=== PATIENT | male | born 1950 | race Caucasian/White ===

== ENCOUNTER 2019-06-30 07:10 | Inpatient (IN) ==
--- NOTE | 2019-06-30 08:16 | Diag Imaging Result Doc PS360 ---
EXAM: FLAT/UPRIGHT ABD/1 VIEW CHEST HISTORY: diarrhea pain TECHNIQUE: Flat and upright with chest, four views COMPARISON: 08/17/2017 FINDINGS: The lungs are well expanded. No cardiomegaly. No pneumonia. No free air beneath the diaphragm. No organomegaly. There is stool in the colon. No bowel obstruction. There are surgical clips and sutures in the right lower quadrant. No abnormal abdominal calcifications. IMPRESSION: No acute abnormality. Electronically signed by Lucas Silva 06/30/2019 8:14 AM
[2019-06-30 08:31] LABS: BASO# 0.05 X1000 (0.0-0.2); BASO% 0.6 % (0.0-0.8); EOS# 0.03 X1000 (0.0-0.7); EOS% 0.4 % (0.0-10.0); HEMATOCRIT 41.7 % (42.0-52.0); IMM GRAN# 0.01 X1000 (0.0-0.04); IMM GRAN% 0.1 % (0.0-0.5); LYMPH# 0.88 X1000 (1.2-3.4); LYMPH% 11.1 % (20.5-51.1); MCH 30.2 PG (27-31); MCHC 33.6 g/dL (33-37); MCV 89.9 FL (81-99); MONO# 0.82 X1000 (0.11-0.59); MONO% 10.3 % (1.7-9.3); MPV 10.1 FL (7.4-10.4); NEUT# 6.15 X1000 (1.4-6.5); NEUT% 77.5 % (42.2-75.2); PLT 139 X1000 (130-400); RBC 4.64 XMIL (4.7-6.1); RDW 14.3 % (11.5-14.5); WBC 7.94 X1000 (4.8-10.8)
[2019-06-30 08:34] LABS: BILIRUBIN URINE NEGATIVE (NEGATIVE); BLOOD URINE NEGATIVE (NEGATIVE); CLARITY CLEAR (CLEAR); COLOR YELLOW; GLUCOSE URINE NEGATIVE (NEGATIVE); KETONE URINE TRACE mg/dL (NEGATIVE); LEUKOCYTES URINE TRACE (NEGATIVE); NITRITE URINE NEGATIVE (NEGATIVE); PROTEIN URINE TRACE mg/dL (NEGATIVE); UROBILINOGEN URINE NORMAL
--- NOTE | 2019-06-30 08:35 | PROVIDER DOCUMENTATION ---
HPI-Abdominal Pain/GI Problem - General Chief Complaint: Diarrhea Stated Complaint: N / D Time Seen by Provider: 06/30/19 08:11 Source: patient Allergies/Adverse Reactions: Patient Allergies Allergy/AdvReac Type Severity Reaction Status Date / Time No Known Allergies Allergy Verified 06/28/17 14:11 Home Medications: Home Medication List Medication Instructions Recorded Confirmed Last Taken Type Aspirin EC 325 mg PO DAILY 06/28/17 06/30/19 08/16/17 History Carvedilol 12.5 mg PO BID 06/28/17 06/30/19 06/29/19 History Lisinopril 40 mg PO DAILY 06/28/17 06/30/19 06/29/19 History Montelukast [Singulair] 10 mg PO DAILY 06/28/17 06/30/19 06/29/19 History Omeprazole 20 mg PO DAILY 06/28/17 06/30/19 06/29/19 History Brimonidine 0.1% Ophth Soln 1 drp BOTH EYES BID 06/30/19 06/30/19 Unknown History [Alphagan P 0.1% Ophth Soln] Fluticasone 50 Mcg Nasal [place] 2 sprays INH DAILY 06/30/19 06/30/19 Unknown History [Flonase] Furosemide [Lasix] 40 mg PO DAILY 06/30/19 06/30/19 06/29/19 History Glipizide E.r. [Glucotrol Xl] 2.5 mg PO DAILY 06/30/19 06/30/19 06/29/19 History Loratadine [Claritin] 10 mg PO DAILY 06/30/19 06/30/19 Unknown History Metformin HCl 1,000 mg PO BID 06/30/19 06/30/19 06/29/19 History [place]-3 Fatty Acids/Fish Oil [Fish 4,000 mg PO DAILY 06/30/19 06/30/19 Unknown History Oil 1,000 mg Capsule] Simvastatin 10 mg PO DAILY 06/30/19 06/30/19 06/29/19 History - History of Present Illness-ABD Nature of Presenting Problems: last year had severe bout of diarrhea and his kidney shut down told he had colitis has some pain in epigastrium has been on antibiotics for a diabetic foot ulcer Abdominal Pain Onset Location: reports: epigastric, periumbilical, suprapubic Pain Radiation: reports: no radiation Quality of Pain: reports: cramping, pressure Severity in ED: reports: moderate Onset/Duration: reports: 4 days ago Timing: reports: getting worse Activities at Onset: reports: none Exposure to sick contacts?: No Modifying Factors: improves with: nothing Associated Symptoms: reports: diarrhea, loss of appetite, nausea Last BM: this morning Dark Stools Present?: reports: bright red blood Rectal Bleeding: reports: bloody diarrhea # of Diarrhea Episodes: 4 Rectal Pain: reports: none # of Vomiting Episodes: 0 Bruising or Bleeding Gums?: No Similar Symptoms Previously?: Yes Recently seen or treated by another doctor?: No Review of Systems - Adult - REVIEW OF SYSTEMS - ADULT Constitutional: reports: chills, fever Eyes: reports: no symptoms reported Ears, Nose, Mouth & Throat: reports: no symptoms reported Cardiovascular: reports: no symptoms reported Respiratory: reports: no symptoms reported Gastrointestinal: reports: abdominal pain, nausea, poor appetite, rectal bleeding Genitourinary: reports: no symptoms reported Musculoskeletal: reports: no symptoms reported Integumentary: reports: skin sores/ulcer (on toe) Endocrine: denies: increased hunger, increased thirst, polyuria Hematologic/Lymphatic: reports: no symptoms reported Allergic/Immunologic: reports: no symptoms reported Past History - Adult - PAST MEDICAL HISTORY-ADULT Review of Records: reports: Nursing Assessment Review, Medications Reviewed, Social history reviewed & non-contributory. Major Childhood Illnesses: reports: denies history Cardiovascular: reports: A-Fib, HTN Respiratory: reports: denies history Gastrointestinal: reports: colitis Obstetrical/Gynecological: reports: denies history Genitourinary: reports: denies history Musculoskeletal: reports: denies history Neurological: reports: denies history Psychiatric: reports: denies history Endocrine/Immune: reports: Diabetes Other Conditions: reports: denies history - PRIOR SURGERIES/PROCEDURES Surgical/Procedure History: reports: reviewed, not pertinent, appendectomy - IMMUNIZATION STATUS Childhood Immunizations: See Nurse Assessment Flu Vaccine: See Nurse Assessment - FAMILY HISTORY Family History: reviewed, not pertinent Physical Exam-General - PHYSICAL EXAM-ADULT Initial Vital Signs Reviewed: Yes - CONSTITUTIONAL General Appearance: appears well, alert, no apparent distress - EYES Eyes: PERRL/EOMI, pink conjunctivae - HEAD, EARS, NOSE, MOUTH & THROAT HENMT: normocephalic/atraumatic - NECK Neck: non-tender, full range of motion - RESPIRATORY Respiratory: chest non-tender, lungs clear, normal breath sounds - CARDIOVASCULAR Cardiovascular: regular rate, rhythm - GASTROINTESTINAL (ABDOMEN) Abdominal Exam: soft - LYMPHATIC Lymphatic: no adenopathy - MUSCULOSKELETAL Back Exam: normal inspection Extremity: normal range of motion Peripheral Pulses: dorsalis-pedis (R): 3+, dorsalis-pedis (L): 3+ - SKIN Integumentary: normal color, normal turgor - NEUROLOGIC Neurologic: grossly normal - PSYCHIATRIC Psych/Mental Status: normal thought process Progress - PLAN OF CARE/RESULTS Progress/Plan/Lab Results: Vital Signs - 8 hr 06/30/19 07:26 Temperature 98 F Pulse Rate 85 Respiratory Rate 18 Blood Pressure 100/61 O2 Sat by Pulse Oximetry 96 Orders Category Date Time Status FLAT/UPRIGHT ABD/1 VIEW CHEST [RAD] Stat Exams 06/30/19 07:31 Completed AMYLASE [CHEM] Stat Lab 06/30/19 07:55 Received CBC WITH DIFF [HEME] Stat Lab 06/30/19 07:55 Results COMPREHENSIVE METABOLIC PANEL [CHEM] Stat Lab 06/30/19 07:55 Received LIPASE [CHEM] Stat Lab 06/30/19 07:55 Received OCCULT BLOOD SCREEN STOOL PL Stat Lab 06/30/19 08:[address] W/POSS RFLX CULT [URINALYSIS] Stat Lab 06/30/19 07:25 Received Laboratory Tests 06/30/19 06/30/19 06/30/19 07:25 07:55 07:55 WBC 7.94 RBC 4.64 L Hgb 14.0 Hct 41.7 L MCV 89.9 MCH 30.2 MCHC 33.6 RDW Std Deviation 14.3 Plt Count 139 MPV 10.1 Immature Gran % (Auto) 0.1 Neut % (Auto) 77.5 H Lymph % (Auto) 11.1 L [place] % (Auto) 10.3 H Eos % (Auto) 0.4 Baso % (Auto) 0.6 Immature Gran # (Auto) 0.01 Neut # (Auto) 6.15 Lymph # (Auto) 0.88 L [place] # (Auto) 0.82 H Eos # (Auto) 0.03 Baso # (Auto) 0.05 Sodium Potassium Chloride Carbon Dioxide Anion Gap BUN Creatinine Estimated GFR/1.73 m2 BUN/Creatinine Ratio Glucose POC Glucose Calculated Osmolality Calcium Magnesium Total Bilirubin AST ALT Alkaline Phosphatase Total Protein Albumin Globulin Albumin/Globulin Ratio Amylase 22 Lipase TSH Urine Source CLEAN CATCH Urine Color YELLOW Urine Clarity CLEAR Urine pH 5.0 Ur Specific [place] 1.020 Urine Protein TRACE A Urine Ketones TRACE Urine Blood NEGATIVE Urine Nitrite NEGATIVE Urine Bilirubin NEGATIVE Urine Urobilinogen NORMAL Urine Microscopic RBC <10 Urine WBC TRACE A Urine Microscopic WBC <10 Ur Epithelial Cells <10 Urine Crystals NONE SEEN Urine Bacteria 1+ Urine Casts NONE SEEN Urine Yeast NONE SEEN Urine Glucose NEGATIVE Stool Occult Blood Stool Occult Blood #2 Stool C.difficile Toxin 06/30/19 06/30/19 06/30/19 07:55 08:30 08:35 WBC RBC Hgb Hct MCV MCH MCHC RDW Std Deviation Plt Count MPV Immature Gran % (Auto) Neut % (Auto) Lymph % (Auto) [place] % (Auto) Eos % (Auto) Baso % (Auto) Immature Gran # (Auto) Neut # (Auto) Lymph # (Auto) [place] # (Auto) Eos # (Auto) Baso # (Auto) Sodium 138 Potassium 4.0 Chloride 99 Carbon Dioxide 24 L Anion Gap 16 BUN 31 H Creatinine 2.2 H Estimated GFR/1.73 m2 30 BUN/Creatinine Ratio 14 Glucose 192 H POC Glucose Calculated Osmolality 287 Calcium 8.6 L Magnesium Total Bilirubin 0.80 AST 46 H ALT 44 Alkaline Phosphatase 78 Total Protein 7.0 Albumin 4.3 Globulin 3.0 Albumin/Globulin Ratio 2.0 Amylase Lipase 8 L TSH Urine Source Urine Color Urine Clarity Urine pH Ur Specific [place] Urine Protein Urine Ketones Urine Blood Urine Nitrite Urine Bilirubin Urine Urobilinogen Urine Microscopic RBC Urine WBC Urine Microscopic WBC Ur Epithelial Cells Urine Crystals Urine Bacteria Urine Casts Urine Yeast Urine Glucose Stool Occult Blood NEGATIVE POSITIVE A Stool Occult Blood #2 CATTLE SPRAYER Stool C.difficile Toxin 06/30/19 06/30/19 06/30/19 08:55 16:22 16:46 WBC 7.00 RBC 4.30 L Hgb 13.1 L Hct 38.4 L MCV 89.3 MCH 30.5 MCHC 34.1 RDW Std Deviation 14.1 Plt Count 129 L MPV 9.6 Immature Gran % (Auto) Neut % (Auto) Lymph % (Auto) [place] % (Auto) Eos % (Auto) Baso % (Auto) Immature Gran # (Auto) Neut # (Auto) Lymph # (Auto) [place] # (Auto) Eos # (Auto) Baso # (Auto) Sodium Potassium Chloride Carbon Dioxide Anion Gap BUN Creatinine Estimated GFR/1.73 m2 BUN/Creatinine Ratio Glucose POC Glucose 158 H Calculated Osmolality Calcium Magnesium Total Bilirubin AST ALT Alkaline Phosphatase Total Protein Albumin Globulin Albumin/Globulin Ratio Amylase Lipase TSH Urine Source Urine Color Urine Clarity Urine pH Ur Specific [place] Urine Protein Urine Ketones Urine Blood Urine Nitrite Urine Bilirubin Urine Urobilinogen Urine Microscopic RBC Urine WBC Urine Microscopic WBC Ur Epithelial Cells Urine Crystals Urine Bacteria Urine Casts Urine Yeast Urine Glucose Stool Occult Blood Stool Occult Blood #2 Stool C.difficile Toxin NEGATIVE 06/30/19 07/01/19 07/01/19 20:44 05:05 05:05 WBC RBC Hgb Hct MCV MCH MCHC RDW Std Deviation Plt Count MPV Immature Gran % (Auto) Neut % (Auto) Lymph % (Auto) [place] % (Auto) Eos % (Auto) Baso % (Auto) Immature Gran # (Auto) Neut # (Auto) Lymph # (Auto) [place] # (Auto) Eos # (Auto) Baso # (Auto) Sodium 139 Potassium 3.7 Chloride 102 Carbon Dioxide 25 Anion Gap 13 BUN 27 H Creatinine 1.4 H Estimated GFR/1.73 m2 50 BUN/Creatinine Ratio 19 Glucose 138 H POC Glucose 75 D Calculated Osmolality 285 Calcium 8.3 L Magnesium 1.4 L Total Bilirubin 0.80 AST 45 H ALT 42 Alkaline Phosphatase 69 Total Protein 6.3 Albumin 3.8 Globulin 3.0 Albumin/Globulin Ratio 2.0 Amylase Lipase TSH 4.08 Urine Source Urine Color Urine Clarity Urine pH Ur Specific [place] Urine Protein Urine Ketones Urine Blood Urine Nitrite Urine Bilirubin Urine Urobilinogen Urine Microscopic RBC Urine WBC Urine Microscopic WBC Ur Epithelial Cells Urine Crystals Urine Bacteria Urine Casts Urine Yeast Urine Glucose Stool Occult Blood Stool Occult Blood #2 Stool C.difficile Toxin 07/01/19 07/01/19 07/01/19 05:05 06:14 10:57 WBC 5.64 RBC 4.19 L Hgb 12.6 L Hct 37.4 L MCV 89.3 MCH 30.1 MCHC 33.7 RDW Std Deviation 14.0 Plt Count 137 MPV 9.9 Immature Gran % (Auto) Neut % (Auto) Lymph % (Auto) [place] % (Auto) Eos % (Auto) Baso % (Auto) Immature Gran # (Auto) Neut # (Auto) Lymph # (Auto) [place] # (Auto) Eos # (Auto) Baso # (Auto) Sodium Potassium Chloride Carbon Dioxide Anion Gap BUN Creatinine Estimated GFR/1.73 m2 BUN/Creatinine Ratio Glucose POC Glucose 133 H D 165 H Calculated Osmolality Calcium Magnesium Total Bilirubin AST ALT Alkaline Phosphatase Total Protein Albumin Globulin Albumin/Globulin Ratio Amylase Lipase TSH Urine Source Urine Color Urine Clarity Urine pH Ur Specific [place] Urine Protein Urine Ketones Urine Blood Urine Nitrite Urine Bilirubin Urine Urobilinogen Urine Microscopic RBC Urine WBC Urine Microscopic WBC Ur Epithelial Cells Urine Crystals Urine Bacteria Urine Casts Urine Yeast Urine Glucose Stool Occult Blood Stool Occult Blood #2 Stool C.difficile Toxin Result Diagrams: 07/01/19 05:05 07/01/19 05:05 - XRAY 1 XRAY Study: Abdomen Impression: See EMR Report ([facility] - [address] , [address], [place] [address] [facility] - [address] [place] [address] Department of Imaging Patient: VALE LONDONO Date: 06/30/19MR#: [id number] : 1950ADM Status: PRE ERAcct#: [id number] Age/Sex: 68/MRoom/Bed: Loc: P.ED Ordering Physician: Maxwell Radford MD Family Physician: Judi Travis MD Reason for Procedure: diarrhea pain Signed EXAM: FLAT/UPRIGHT ABD/1 VIEW CHEST HISTORY: diarrhea pain TECHNIQUE: Flat and upright with chest, four views COMPARISON: 08/17/2017 FINDINGS: The lungs are well expanded. No cardiomegaly. No pneumonia. No free air beneath the diaphragm. No organomegaly. There is stool in the colon. No bowel obstruction. There are surgical clips and sutures in the right lower quadrant. No abnormal abdominal calcifications. IMPRESSION: No acute abnormality. Electronically signed by Lucas Silva 06/30/2019 8:14 AM 06/30/19 0814 Interpreting Physician: Lucas Silva MD Dictated Date/Time: 06/30/19812 cc: Maxwell Radford MD; Judi Travis MD) Departure - Departure Date of Disposition Decision: 06/30/19 Time of Disposition Decision: 11:27 DIAGNOSIS: Colitis, Hypomagnesemia, Dehydration Disposition: ADMITTED INPATIENT 09 Certified Medical Emergency: Emergent Condition: Stable - Critical Care Note This patient required my direct & personal management of CC.: No Attestation - Physician/ LOKESH Attestation Patient care was provided by Advanced Practice Provider:: No The physician spent face to face time with patient:: Yes Advanced Practice Provider documentation review:: Supervising physician onsite and consulted in the evaluation and care of this patient. The physician did have a face to face encounter with the patient.
[2019-06-30 08:36] LABS: URINE BACTERIA 1+ /HFP; URINE CAST NONE SEEN /LPF; URINE CRYSTAL NONE SEEN /HPF; URINE EPITHELIAL CELLS <10 /HPF (<10); URINE RBC <10 /HPF (<10); URINE SOURCE CLEAN CATCH; URINE WBC <10 /HPF (<10); URINE YEAST NONE SEEN /HPF
[2019-06-30 08:36] LABS: ALBUMIN 4.3 g/dL (3.5-5.0); CALCIUM 8.6 mg/dL (8.8-10.2); CREATININE 2.2 mg/dL (0.7-1.2); TOTAL BILIRUBIN 0.8 mg/dL (0.20-1.00)
[2019-06-30 08:40] LABS: OCCULT BLOOD 1 NEGATIVE (NEGATIVE)
[2019-06-30 10:38] LABS: OCCULT BLOOD 1 POSITIVE (NEGATIVE)
[2019-06-30] MEDS ORDERED: NS 1,000 ML IV ONE (10:59)
--- NOTE | 2019-06-30 15:24 | HISTORY AND PHYSICAL ---
REMOTE SENSING SCIENTIST: Dr. Judi Travis. CHIEF COMPLAINT: Diarrhea with bloody stools. HISTORY OF PRESENT ILLNESS: Mr. Templeton is a 68-year-old male, who presented today with a past medical history of colitis, a recent toe infection on IV antibiotics, diabetes type 2, gout and atrial fibrillation. The patient states he has been having blood in his stools for the past 3 days. The patient states that he was in the hospital a year ago with similar symptoms and was diagnosed with colitis. The patient was seen by Dr. Melvin. The patient this morning did take some Imodium for his bowels, and he has not had a bowel movement since this morning. The patient states he has been having some chills, some dizziness and some weakness. The patient does deny any syncope, pain, nausea or vomiting. Denies any dysuria, frequency or urgency. LABORATORY FINDINGS: Hemoglobin 14.0, hematocrit 41.7, BUN 31 and creatinine of 2.2, glucose of 192. Urinalysis does have 1+ bacteria, negative for nitrates. Stool occult blood is positive. C diff toxin is negative. PAST MEDICAL HISTORY: Infected left great toe on p.o. antibiotics, colitis, atrial fibrillation with an ablation over a year ago diabetes mellitus type 2, gout, hypertension. PAST SURGICAL HISTORY: Ablation in May of 2018, appendectomy, left ankle repair, lipoma removed from the right shoulder, deviated septum repair. FAMILY HISTORY: Mother had type 2 diabetes and hypertension. Father from leukemia. SOCIAL HISTORY: Patient lives in [place] with his . He is retired from the [employer]. He denies any smoking, alcohol or illicit drug abuse. ALLERGIES: No known drug allergies. MEDICATIONS: 1. Glipizide 2.5 mg p.o. daily. 2. Metformin 1000 mg p.o. b.i.d. 3. Aspirin 325 mg p.o. daily. 4. Carvedilol 12.5 mg p.o. b.i.d. 5. Flonase 2 sprays inhaled daily. 6. Lasix 40 mg p.o. daily. 7. Lisinopril 40 mg p.o. daily. 8. Claritin 10 mg p.o. daily. 9. Singular 10 mg p.o. daily. 10. Fish oil 4000 mg p.o. daily. 11. Omeprazole 20 mg p.o. daily. 12. Simvastatin 10 mg p.o. daily. LABS AND DIAGNOSTICS: White blood cell count 7.94, red blood cell count 4.64, hemoglobin 14, hematocrit 41.7, platelet count 139. Sodium 138, potassium 4.0, chloride 99, carbon dioxide 24, anion gap 16. BUN is 31, creatinine 2.2. Estimated GFR is 30. Glucose is 192, calcium is 8.6, total bilirubin is 0.8. AST is 46, ALT is 44, alkaline phosphatase 78. Urinalysis shows trace protein, trace ketones, trace white blood cell count, 1+ bacteria. Stool occult blood is positive. C diff toxin is negative. Abdominal x-ray shows no acute abnormality. REVIEW OF SYSTEMS: A 10 point review of systems has been obtained. All are negative, except what is stated above in HPI. PHYSICAL EXAMINATION: VITAL SIGNS: Temperature 98.0 degrees, pulse rate 78, respiratory rate 18, blood pressure 101/56, O2 saturations 97% on room air. Weight is 231.9 pounds. Height is 6 feet 3 inches. GENERAL: This is a 68-year-old male. He is lying in bed. He is in no acute distress. He is well nourished, well developed. HEENT: Atraumatic, normocephalic. Pupils equal, round, reactive to light. Extraocular movements intact. Sclerae is icteric. Mucous membranes are moist. NECK: Supple. No lymphadenopathy. Trachea is midline. No JVD. No thyromegaly. No bruits. CARDIOVASCULAR: Regular rate and rhythm. No gallops or rubs appreciated. RESPIRATORY: Lung sounds are clear. Equal chest excursion. Respirations are nonlabored with no accessory muscle usage. GI: Abdomen is soft, nontender, nondistended. Bowel sounds present x4. NEUROLOGIC: Cranial nerves 2-12 are intact. The patient is awake, alert and oriented. Follows all commands. MUSCULOSKELETAL: Full distal strength noted. No abnormalities of gait. No deformities. EXTREMITIES: No clubbing, no cyanosis, no edema. DP and PT pulses are present and palpable. There is a very small reddened area to top of the left great toe. There is no open wound noted. SKIN: Warm, dry and intact. No rashes or bruises. No diaphoresis. ASSESSMENT AND PLAN: 1. Gastrointestinal bleed. We will admit this patient to the medical floor. We will place him on intravenous fluid hydration. His hemoglobin/hematocrit is stable at this time. He has not had any more bleeding since this morning. We are going to recheck his complete blood count this afternoon. We are also going to check stool for white blood cell count. We have ordered labs to be repeated in the morning. We restarted some of his home medications. 2. Acute kidney injury. We will place this patient on intravenous fluid hydration normal saline 150 mL/hour. We will recheck labs in the morning. The patient has had a history of an acute kidney injury in the past. However, his last creatinine was done on 05/28/2019 and it was 1.2. 3. Diabetes mellitus. We will be checking the patient's fingersticks and providing him with subcutaneous insulin as needed. 4. Hypertension. We have restarted this patient's home blood pressure medications. 5. History of atrial fibrillation. The patient did have an ablation over a year ago. He is on home aspirin. We are going to place this patient on quality assurance monitor body and watch his heart rate closely. He seems to be in a sinus rhythm at this present time. 6. Deep venous thrombosis prophylaxis. I will provide this patient with sequential compression devices. 7. Gastrointestinal prophylaxis. Patient is on Prilosec daily at home. We will continue this. We have admitted this patient to the medical floor, will place him on intravenous fluid hydration. We are going to repeat a complete blood count this afternoon and repeat labs in the morning. Monitor him closely for any more bleeding. Restarted some of his home medications, and we are going to keep an eye on his fingerstick blood sugars. Place him on quality assurance monitor body and monitor his heart rate. Also, going to start him on clear liquid diet. All further treatment pending hospital course and and laboratory findings. Dictated by HOLLY Wallace for Contreras Salas MD cc: MD Judi Cuevas MD MTDD
[2019-06-30 17:08] LABS: HEMATOCRIT 38.4 % (42.0-52.0); HEMOGLOBIN 13.1 g/dL (14.0-18.0); MCH 30.5 PG (27-31); MCHC 34.1 g/dL (33-37); MCV 89.3 FL (81-99); MPV 9.6 FL (7.4-10.4); RBC 4.3 XMIL (4.7-6.1); RDW 14.1 % (11.5-14.5)
[2019-06-30] MEDS: HUMULIN R (PARKWAY) SUBQ SCH ×2 (18:15→20:59)
--- NOTE | 2019-06-30 19:09 | HISTORY AND PHYSICAL ---
ADDENDUM: Patient seen and examined by myself. Full note dictated and discussed with nurse practitioner. The patient has a known history of atrial fibrillation, COPD, and a previous history of colitis. He presented to the hospital with abdominal pain and nausea, and has had some blood in his stool. He has been on antibiotics a couple times recently for an infection in his left foot. He denies any abdominal cramping or any symptoms prior to last night's episode. He has not had any more bleeding since being to the hospital. His hemoglobin and hematocrit is stable. We will admit him to the hospital. We will follow. We will follow his hemoglobin and hematocrit. He certainly could have C. difficile although his Clostridium difficile toxin in the ER was negative. We will check a CT if his kidney function will allow. Currently [facility] is pending. cc: Contreras Salas MD
[2019-06-30] MEDS: COREG PO SCH (20:59)
[2019-06-30] MEDS: ALPHAGAN P 0.1% OPHTH SOLN BOTH EYES SCH (21:45)
[2019-07-01 05:45] LABS: HEMATOCRIT 37.4 % (42.0-52.0); HEMOGLOBIN 12.6 g/dL (14.0-18.0); MCH 30.1 PG (27-31); MCHC 33.7 g/dL (33-37); MCV 89.3 FL (81-99); MPV 9.9 FL (7.4-10.4); RBC 4.19 XMIL (4.7-6.1); WBC 5.64 X1000 (4.8-10.8)
[2019-07-01 06:09] LABS: ALBUMIN 3.8 g/dL (3.5-5.0); CALCIUM 8.3 mg/dL (8.8-10.2); CREATININE 1.4 mg/dL (0.7-1.2); MAGNESIUM 1.4 mg/dL (1.5-2.7); POTASSIUM 3.7 mmol/L (3.5-5.1); TOTAL BILIRUBIN 0.8 mg/dL (0.20-1.00); TOTAL PROTEIN 6.3 g/dL (6.3-8.3)
[2019-07-01] MEDS: HUMULIN R (PARKWAY) SUBQ SCH ×2 (06:17→14:40)
[2019-07-01] MEDS ORDERED: MAGNESIUM SULFATE 1 GM/D5W 1 GM/100 ML IVPB IV ONE (07:22)
[2019-07-01] MEDS ORDERED: LASIX PO SCH (09:00)
[2019-07-01] MEDS ORDERED: FISH OIL CONCENTRATE PO SCH (09:00)
[2019-07-01] MEDS ORDERED: PRINIVIL PO SCH (09:00)
[2019-07-01] MEDS ORDERED: SINGULAIR PO SCH (09:00)
[2019-07-01] MEDS ORDERED: CLARITIN PO SCH (09:00)
[2019-07-01] MEDS ORDERED: FLONASE NAS SCH (09:00)
[2019-07-01] MEDS ORDERED: PRILOSEC PO SCH ×2 (09:00→09:15)
[2019-07-01] MEDS ORDERED: ASPIRIN EC PO SCH (09:00)
[2019-07-01] MEDS ORDERED: ZOCOR PO SCH ×2 (09:00→21:00)
[2019-07-01] MEDS: ALPHAGAN P 0.1% OPHTH SOLN BOTH EYES SCH (09:53)
[2019-07-01] MEDS: COREG PO SCH (09:54)
[2019-07-01 15:08] VITALS: BP 121/65
[2019-07-01] MEDS ORDERED: PATIENT'S OWN MED BOTH EYES SCH (21:00)
--- NOTE | 2019-07-01 22:11 | DISCHARGE SUMMARY ---
ADMISSION DATE: 06/30/2019 DISCHARGE DATE: 07/01/2019 DISCHARGE DIAGNOSIS: 1. Hematochezia improved. Hemoglobin and hematocrit has remained stable. 2. Diabetes. 3. Hypertension. 4. High cholesterol. 5. Chronic reflux. 6. Atrial fibrillation status post ablation currently on aspirin only. CONSULTATIONS: None. PROCEDURES: None. BRIEF HOSPITAL COURSE: The patient was admitted to the hospital secondary to bright red blood in his stool. He had no abdominal pain, no fevers. He did recently have 2 courses of antibiotics for skin infection and C difficile thankfully was negative. He was admitted, kept on clear liquids overnight. His bleeding improved. On discharge he tolerated a full diet. He has had no change in his bleeding in fact has had very little since admission and this appears to be improving most likely hemorrhoidal bleeding. DISPOSITION: Patient will be discharged home, discussed with him that should he start bleeding again he certainly will need to have colonoscopy sooner. Otherwise should consider doing a colonoscopy as an outpatient. Follow up in a few days with his primary care to recheck his hemoglobin and hematocrit to ensure that has remained stable. It currently is 14. No changes made on his diet or activity. Did discuss with him to hold his aspirin for the next several days. cc: Contreras Salas MD
== END 2019-07-01 15:41 | disposition home or self-care (01) | DRG 394 ==
LOC: P.MEDSURG 07:10 → P.ED 07:10
PROVIDERS: ATTEND Family Medicine